=== PATIENT | male | born 1990 | race Caucasian/White ===

== ENCOUNTER 2024-12-09 10:07 | Outpatient (CLI) | payer BC, SELFPAY ==
[2024-12-12 21:57] LABS: Amoxicillin, IgE <0.10 kU/L (<0.70); Clam IgE <0.10 kU/L (<0.70); Crab IgE <0.10 kU/L (<0.70); Lobster IgE 0.12 kU/L (<0.70); Oyster IgE <0.10 kU/L (<0.70); Penicillin G IgE <0.10 kU/L (<0.70); Penicillin V IgE <0.10 kU/L (<0.70); Scallop IgE <0.10 kU/L (<0.70); Shrimp IgE 0.13 kU/L (<0.70)
== END 2024-12-09 10:08 | disposition home or self-care (01) ==
LOC: LBO 10:07
PROVIDERS: Visit Provider Physician Assistant
DX: Z88.9 Allergy status to unspecified drugs, medicaments and biological substances (principal); J34.89 Other specified disorders of nose and nasal sinuses; J31.0 Chronic rhinitis; Z91.018 Allergy to other foods; Z91.013 Allergy to seafood
CPT/HCPCS: 36415; 86003